=== PATIENT | female | born 1940 | race Caucasian/White ===

== ENCOUNTER → 2016-05-10 | Outpatient (CLI) | payer MEDICARE | END | disposition home or self-care (01) | LOC: BFHH 16:39 | DX: E11.40 Type 2 diabetes mellitus with diabetic neuropathy, unspecified (principal); I10 Essential (primary) hypertension; I50.9 Heart failure, unspecified; D64.9 Anemia, unspecified ==

== ENCOUNTER → 2016-08-09 | Outpatient (CLI) | payer MEDICARE | LOC: BFHH 11:10 | DX: E11.40 Type 2 diabetes mellitus with diabetic neuropathy, unspecified (principal); I50.9 Heart failure, unspecified; Z79.4 Long term (current) use of insulin ==

== ENCOUNTER → 2016-11-08 | Outpatient (CLI) | payer MEDICARE | END | disposition home or self-care (01) | LOC: BFHH 10:28 | PROVIDERS: ATTEND Family Medicine | DX: E11.40 Type 2 diabetes mellitus with diabetic neuropathy, unspecified (principal); I50.9 Heart failure, unspecified; D64.9 Anemia, unspecified ==

== ENCOUNTER → 2016-11-12 | Outpatient (CLI) | payer MEDICARE, MEDICAID | END | disposition home or self-care (01) | LOC: YCFC.O 12:22 | PROVIDERS: ATTEND Nurse Practitioner Family | DX: I50.9 Heart failure, unspecified (principal); J44.9 Chronic obstructive pulmonary disease, unspecified ==

== ENCOUNTER 2016-11-13 12:52 | Inpatient (IN) | payer MEDICARE, MEDICAID ==
--- NOTE | 2016-11-13 14:42 | CT ---
EXAM DESCRIPTION: Chest w/o Contrast CLINICAL HISTORY: PLEURAL EFFUSION COMPARISON: Chest radiographs on 11/12/2016. TECHNIQUE: Spiral-axial scans at 5.0 mm intervals through the lungs and thorax without IV contrast. 2.5 mm lung algorithm axial reconstructions. Coronal and sagittal 2.0 Mm reconstructions. Total Exam DLP: 689.97mGy-cm. This exam was performed according to our departmental dose-optimization program which includes automated exposure control, adjustment of the mA and/or kV according to patient size and/or use of iterative reconstruction technique; to reduce radiation dose to as low as reasonably achievable (ALARA). FINDINGS: Large left pleural effusion with atelectasis involving most of the left lung. Residual air-filled lung parenchyma in the anterior left upper lobe. Increased volume in the left hemithorax with displacement of the aortic arch, trachea, and esophagus, heart and mediastinum to the right of midline. No pleural effusion on the right. Difficult to distinguish enlarged hilar nodes from pulmonary vascularity without IV contrast. Two slightly irregular 1 cm nodules in the anterior aspect of the right upper lobe (series 4, image 32). Minimal atelectasis in the base. No pneumothorax. Atherosclerotic calcification in the aortic arch. Heterogeneous density of the thyroid gland. Atherosclerotic calcification of the aorta. Coronary artery calcifications. Enlarged azygos nodes with short axis diameter greater than 10 mm. Enlarged AP window nodes with short axis diameter greater than 10 mm. Enlarged lobulated mass with partially spiculated margins in the upper outer quadrant of the left breast, measuring 6.5 x 5.6 cm. Calcifications around the margins of the mass. Skin thickening of the anterior right breast. Enlarged lymph nodes with somewhat irregular borders and fatty stranding in the left axilla measuring 2.4 and 3.7 cm. No subdiaphragmatic fluid or free intraperitoneal air. Included spleen normal density. Normal size and density of the left adrenal gland. Right adrenal gland is slightly enlarged. Large rim calcified gallstones 2 cm in the gallbladder. Atherosclerotic changes of the abdominal aorta and the SMA and celiac axis. Multiple levels of thoracic spondylosis. No bone destruction. Compression fracture of unknown age at L2 mostly central with minimal retropulsion. IMPRESSION: 1. Large left pleural effusion with atelectasis in the left lung and mass effect on the mediastinum and heart trachea and esophagus to the right. Minimal aerated upper lobe on the left. Most of the lung is atelectatic. Because of the findings in the lymph nodes, right lung, and right breast, diagnostic thoracentesis should be considered. 2. Two abnormal spiculated nodules in the right upper lobe could represent primary or metastatic disease or inflammatory lesions. 3. Large abnormal appearing mass in the right breast with spiculated and ill-defined margins and skin thickening and edema in the anterior breast. Image guided fine-needle core biopsy is recommended. 4. Reactive appearing nodes in the left axilla. Consider image guided fine needle core biopsy. 5. 2 Centimeter stone in the gallbladder. Slight enlargement of the right adrenal gland. CRITICAL COMMUNICATION: The critical value was discussed directly by phone with Dr. Miguel Velazquez at approximately 1400 hours, on November 13, 2016. Electronically signed by: Aren Leon MD 11/13/2016 2:41 PM CDT
--- NOTE | 2016-11-13 17:58 | HP ---
SUPERVISING PHYSICIAN: Román Knight MD CHIEF COMPLAINT: Severe shortness of breath, lower extremity edema, facial edema. HISTORY OF PRESENT ILLNESS: Ms. Olea is a 76-year-old, female patient that is followed at [facility]. She ivy have a history of diabetes and chronic obstructive pulmonary disease. She had been having some lower extremity and swelling within the last week. She noted she has had over an 11 pound weight gain over the last several months. In the last couple of days, she has started getting severely short of breath. She presented to the clinic today and it was noted she had some facial and periorbital edema. She was sent for a chest x-ray and laboratory studies with concerns for possible congestive heart failure exacerbation although the patient does not have an official diagnosis of congestive heart failure. Her chest x-ray initially showed near white-out of the left lung mancia with a large pleural effusion noted. Yeni Rock, nurse practitioner, in the clinic requested the patient be initially admitted directly to the hospital for further evaluation and treatment. Request was to have the patient followed with a CT scan prior to admission to further delineate the left lung. She had a CT scan without contrast and of note per radiologic interpretation was a large left pleural effusion with a mass effect on the mediastinum, heart, trachea, and esophagus to the right. There was also note of two abnormal spiculated nodules in the right upper lobe as well as a large abnormal appearing mass within the right breast with spiculated ill-defined margins, skin thickening and edema in the anterior breast. There was also note of some reactive appearing nodes within the left axilla as well as a 2 cm stone was noted in the gallbladder. Given the extensive nature of pleural effusion and the patient's symptomatology, the patient's case was discussed with Dr. Monsivais who agreed the patient could be admitted to the Medical/Surgical Floor for a diagnostic thoracentesis as well as need for a needle biopsy of the breast mass. The patient noted that she has never had a mammogram and reports that the breast mass has been present for well over six years. She also notes there had been a change in her medications regarding gabapentin which was felt to possibly be related to the facial swelling as it had been recently increased in dosage due to the peripheral neuropathy secondary to diabetes complications. The patient was directly to the Medical/Surgical Floor in stable condition. PAST MEDICAL HISTORY: 1. Type 2 diabetes mellitus. 2. Diabetic neuropathy. 3. Hypercholesterolemia. 4. Obstructive sleep apnea utilizing CPAP. 5. Hypertension. 6. Congestive heart failure without a recent echocardiogram for review. 7. Eczema. PAST SURGICAL HISTORY: 1. Hysterectomy in 1982. 2. EGD with esophageal fundoplasty in 2011. 3. Colonoscopy in 2011. MEDICATIONS: 1. Vitamin B12 1 daily. 2. Potassium chloride 10 mEq daily. 3. Protonix 40 mg daily. 4. Lovastatin 20 mg daily. 5. Lisinopril 20 mg daily. 6. Glipizide 10 mg daily. 7. Gabapentin 600 mg twice daily. 8. Lasix 20 mg daily. 9. Iron sulfate 325 mg 3 times a day. 10. Calcium supplement 1 tablet daily. ALLERGIES: NO KNOWN DRUG ALLERGIES. FAMILY HISTORY: Significant for diabetes, heart disease, cancers as noted with pancreatic cancer within her maternal grandmother. SOCIAL HISTORY: The patient lives in [place]. She is . She is retired from working in [employer] in [place], [place]. She does have an extensive smoking history, approximately 1 to 1-1/2 packs a day for a little over 40 years , having quit in 2004. She denies any alcohol or illicit drug use. REVIEW OF SYSTEMS: CONSTITUTIONAL: She has had an 11 pound weight gain within the last 2 to 3 months, but denies any fevers, chills. HEENT: Denies changes in hearing, nasal congestion, headaches. As noted in history of present illness, she does have facial edema and periorbital edema which has been present for a couple of days. RESPIRATORY: She does complain of severe dyspnea with rapid desaturation secondary to the large underlying pleural effusion. She does have a cough, but it is nonproductive. CARDIOVASCULAR: Denies chest pains, syncopal episodes or palpitations. GASTROINTESTINAL: Denies abdominal pain, diarrhea, constipation, nausea or vomiting. GENITOURINARY: Denies dysuria, hematuria, increased frequency. NEUROLOGIC: Denies dizziness, headaches, or other neurologic symptoms. PHYSICAL EXAMINATION: VITAL SIGNS: On admission, temperature 99. Pulse 98. Blood pressure 130/72. Respirations 22 to 24 with obvious shortness of breath and labored. O2 saturation between 90% and 92% on nasal cannula at 4.5 liters. Admission weight 102.0 kg. HEENT: Tympanic membranes partially obscured by cerumen. Facial features were symmetrical, but she does have obvious facial edema and periorbital edema, more on the right than the left. NECK: Supple, nontender with full range of motion. There is some mild jugular venous distention noted. CHEST: Lung sounds on left side of chest were essentially absent except for just very faint noted to the upper apices. Right is fairly clear, just some faint rhonchi heart posteriorly both on right and left. CARDIOVASCULAR: Heart tones were very distant, but no obvious murmurs, gallops , or rubs noted. ABDOMEN: Obese, but soft, nontender. Positive bowel sounds. EXTREMITIES: 1+ edema up to just below the patellar region bilaterally. NEUROLOGIC: The patient is alert and oriented times three. Cranial nerves II- XII are grossly intact. LABORATORY: CBC at the clinic prior to admission showed white count 4.5, hemoglobin 12.5, hematocrit 39.1, platelet count 197,000. Differential within normal limits without a left shift. Chemistries showed elevated carbon dioxide of 36, but potassium and sodium were within normal limits. BUN slightly elevated at 26, but creatinine was elevated at 2.0. BNP normal at 30. Admission glucose was 101. Serum osmolality 286, calcium 9.3. Urinalysis showed just a trace of intact blood, otherwise within normal limits. Coagulation studies and liver functions were pending at time of admission. RADIOLOGY: As noted, chest x-ray in the clinic today showed a large pleural effusion pending radiology interpretation. This was followed up with a CT of the chest without contrast and per radiologic interpretation, as noted above, there was a large left pleural effusion with some slightly irregular nodules within the anterior aspect of the right upper lobe. There was no pneumothorax noted. There was 2 abnormal spiculated nodules in the right upper lobe as well as a large abnormal appearing mass within the right breast, spiculated with ill- defined margins, skin thickening and edema anterior in the breast with reactive appearing nodes within the left axilla and 2 cm stone noted within the gallbladder, slight enlargement of the right adrenal gland. Please refer to that report for full details. ASSESSMENT: 1. Large left sided pleural effusion resulting in severe dyspnea. Etiology concerning for a metastatic process with a mass noted on CT scan within the right breast as well as enlarged lymph nodes in the left axilla. 2. Breast mass, concerning for metastatic process with the patient having no history of breast cancer or ever having a mammogram. 3. Type 2 diabetes mellitus. 4. Diabetic neuropathy. 5. Obstructive sleep apnea utilizing CPAP. 6. History of congestive heart failure, unknown etiology, without any echocardiogram for review. 7. Gastroesophageal reflux disease. 8. Facial edema with periorbital edema, uncertain etiology, cannot completely rule out underlying infectious process versus reactive process secondary to allergies or medication side effect. 9. Morbid obesity. PLAN: The patient will be admitted for anticipation of diagnostic/therapeutic thoracentesis in the morning to be performed by Dr. Monsivais. Dr. Monsivais has been consulted and also will talk to the patient about possibly doing a needle biopsy of both the lymph nodes and the mass within the left breast. Given the appearance of the facial and periorbital edema, I will start her on Rocephin for prophylactic treatment for possible underlying cellulitis process. We will plan to repeat laboratory studies in the morning including CBC, CMP, coagulation studies. She will be on breathing treatments tonight with albuterol DuoNeb treatments as needed as well as BiPAP as the patient tolerates. I will place a Eckert catheter to closely monitor her output and volume status and anticipate giving initially a dose of 80 mg IV Lasix in efforts to decrease the extremity edema as well as relieve some of the pleural effusion and facial edema. We will anticipate thoracentesis in the morning. I will coordinate with nursing staff to ensure that sonography is aware of working with Dr. Monsivais in regards to completing the thoracentesis. We will resume her home medications as appropriate. We will start her on DVT prophylaxis and hold off on the Lovenox until after Dr. Monsivais has had time to consult and complete needed procedures. We will anticipate length of stay to be 2 to 3 days. Until discharge, we will continue to monitor the patient closely and treat appropriately. Once clinically stable and discharged, the patient will need to followup with [facility] as well as any other needed clinical followup. #[id number] [facility]
[2016-11-13] MEDS ORDERED: DEXTROSE 50% 25 GM/50 ML SYG IV PRN (18:14)
[2016-11-13] MEDS ORDERED: GLUCAGON INJ 1 MG VIAL SUBCU PRN (18:14)
[2016-11-13] MEDS ORDERED: SODIUM CHLORIDE 0.45% 1000ML 1,000 ML IVS PRN (18:21)
[2016-11-13] MEDS ORDERED: IV SET AND CAP CHANGE INJ INJ SCH (18:30)
[2016-11-13] MEDS ORDERED: FUROSEMIDE INJ 100 MG/10 ML VIAL IV ONE (20:00)
[2016-11-13] MEDS ORDERED: cefTRIAXone SODIUM 1 GM VIAL ONE (20:12)
[2016-11-13] MEDS ORDERED: SODIUM CHL 0.9% 50ML MIN-BAG+ 50 ML IVPB ONE (20:12)
[2016-11-13] MEDS: SODIUM CHLORIDE 0.9% (FLUSH) 10 ML SYG IV PRN ×2 (20:27→20:32)
[2016-11-13] MEDS: cefTRIAXone SODIUM 1 GM in SODIUM CHL 0.9% 50ML MIN-BAG+ 50 ML IVPB SCH (20:28)
[2016-11-13] MEDS: INSULIN LISPRO 100 UNITS/ML PEN SUBCU SCH (20:56)
[2016-11-13] MEDS ORDERED: NON-FORMULARY MEDICATION 1 EA MIS (Gabapentin [Gabapentin] 600 MG) PO SCH (21:00)
[2016-11-13] MEDS ORDERED: SODIUM CHLORIDE 0.9% (FLUSH) 10 ML SYG IV SCH (21:00)
[2016-11-13] MEDS ORDERED: NON-FORMULARY MEDICATION 1 EA MIS (Ferrous Sulfate [Ferrous Sulfate] 325 MG) PO SCH (21:00)
[2016-11-13] MEDS ORDERED: FERROUS SULFATE 325 MG TAB ONE (21:10)
[2016-11-13] MEDS ORDERED: GABAPENTIN 300 MG CAP ONE (21:10)
[2016-11-13] MEDS ORDERED: IPRATROPIUM/ALBUTEROL 3 ML VIAL NEB PRN (21:44)
--- NOTE | 2016-11-13 22:46 | PCM.CORE ---
Physician DVT/VTE - Nurse DVT Assessment & Total Each Risk Factor Represents 3 Points: Medical PT with Hx of [place], CHF, Severe infection/sepsis Each Risk Factor Represents 2 Points: Age 60-74, Malignancy (present/past) Each Risk Factor Represents 1 Point: Hx of smoking past year Each Risk Factor is 1 Point: Obesity (BMI >25), Serious Lung disease (pnemonia < 1month, COPD, emphysema,etc) DVT Assessment Score: 10 - 5 or more Very High Risk Treatments: Early Ambulation *, Sequential Compression Device Pharmacological: Enoxaparin 40mg SQ Daily
[2016-11-14] MEDS: ACETAMINOPHEN 325 MG TAB PO PRN ×3 (00:41→17:45)
--- NOTE | 2016-11-14 06:58 | RAD ---
EXAM: Two view chest. INDICATION: Left pleural effusion. COMPARISON: Chest x-ray: 11/12/2016. FINDINGS: There is a large left pleural effusion with little aeration of the left lung. The left heart border is obscured. There is no pneumothorax. The bones are unchanged. IMPRESSION: Large left pleural effusion Electronically signed by: Cuauhtemoc Foster MD 11/14/2016 6:57 AM CDT Workstation: [id number]
[2016-11-14] MEDS: INSULIN LISPRO 100 UNITS/ML PEN SUBCU SCH ×4 (07:40→21:42)
[2016-11-14] MEDS: IPRATROPIUM/ALBUTEROL 3 ML VIAL NEB SCH ×4 (08:08→20:15)
[2016-11-14] MEDS ORDERED: NON-FORMULARY MEDICATION 1 EA MIS (Lovastatin [Lovastatin] 20 MG) PO SCH (09:00)
[2016-11-14] MEDS ORDERED: glipiZIDE 5 MG TAB PO SCH (09:00)
[2016-11-14] MEDS: FERROUS SULFATE 325 MG TAB PO SCH ×3 (09:32→17:19)
[2016-11-14] MEDS: PANTOPRAZOLE SODIUM TAB 40 MG PO SCH (09:33)
[2016-11-14] MEDS: GABAPENTIN 300 MG CAP PO SCH ×2 (09:33→21:08)
[2016-11-14] MEDS: LISINOPRIL 10 MG TAB PO SCH (09:33)
[2016-11-14] MEDS: SODIUM CHLORIDE 0.9% (FLUSH) 10 ML SYG IV PRN (09:34)
[2016-11-14] MEDS ORDERED: LIDOCAINE 1% 10 ML VIAL INJ ONE (09:58)
--- NOTE | 2016-11-14 10:44 | RAD ---
EXAM DESCRIPTION: Chest,1 View CLINICAL HISTORY: 76 years,Female,post thorocentesis-2000ml COMPARISON: November 14, 2016 at 0638 hours FINDINGS: Mild haziness in left lung base. Large effusion prior studies mostly gone. There is some left perihilar prominence of 2.5 cm seen. And lower lung mancia demonstrate engorgement point vascularity. Moderate cardiac megaly. Bony elements are unremarkable for age. No pneumothorax IMPRESSION: Near complete resolution of the left pleural effusion. No pneumothorax. Prominence of left perihilar region. This could be vascularity but cannot exclude mass. Recommend follow-up CT scan of the chest with IV contrast. The prior CT from yesterday without contrast cannot evaluate the left hilar region well due to the atelectatic lung and large pleural effusion. But there are some nodules in the right lung field worrisome for carcinoma. Mild evidence of congestive heart failure. Electronically signed by: Colt Butt MD 11/14/2016 10:43 AM CDT
--- NOTE | 2016-11-14 11:26 | OP ---
DATE OF PROCEDURE: 11/14/16 PREOPERATIVE DIAGNOSIS: 1. Left pleural effusion. 2. Right breast mass. POSTOPERATIVE DIAGNOSIS: 1. Left pleural effusion. 2. Right breast mass. PROCEDURE: 1. Left thoracentesis. SURGEON: Joe Monsivais MD. CARAMEL MAKER: None. ANESTHESIA: Local infiltration of 1% lidocaine. INDICATION: The patient is a 76-year-old female who presented with shortness of breath and was found to have a left pleural effusion. She has a right breast mass that has been present for at least 6 years according to the patient. Using BiPAP, her pulse oximetries at best were in the low 90s. I have been asked to do both diagnostic and therapeutic thoracentesis. PROCEDURE: After ultrasound was used to identify the pool and the depth of the pool, local infiltration of anesthesia was obtained with 1% lidocaine. A stab wound was made with an 11 blade and then after a 22 gauge needle had been introduced and clear fluid obtained, the thoracentesis needle and catheter were introduced in the usual manner over the rib, advanced as fluid was removed and then the catheter was advanced and the needle removed. It was then connected first to a three-way stopcock and approximately 240 cc of fluid were obtained. It was then switched to a suction bottle and the remaining fluid was removed with approximately 2 liters of fluid removed. It was sent for cytology, cell count and culture. The patient tolerated the procedure well. Post procedure, a portable chest x-ray revealed resolution of the effusion with no obvious pneumothorax. #[id number] [facility]
--- NOTE | 2016-11-14 12:06 | US ---
EXAM DESCRIPTION: Thoracentesis ultrasound CLINICAL HISTORY: LEFT pleural effusion. Right breast mass. Left axillary adenopathy. COMPARISON: Chest radiograph today. CT scan of the chest without contrast 11/13/2016. TECHNIQUE: The procedure was performed by Dr. Monsivais. Skin overlying the left posterior thorax area was marked for thoracentesis by the nurse general duty. FINDINGS: Single image shows a moderate-sized fluid collection in the base of the left hemithorax above the left hemidiaphragm. Measures approximately 8.3 x 4.5 cm. IMPRESSION: Successful, ultrasound-guided thoracentesis of the left hemithorax. Please refer to procedure note for further details. Electronically signed by: Aren Leon MD 11/14/2016 12:05 PM CDT
--- NOTE | 2016-11-14 14:26 | CONS ---
DATE OF CONSULTATION: 11/14/16 REFERRING PHYSICIAN: [facility] service, Jose A Rubalcava MD. HISTORY OF PRESENT ILLNESS: The patient is a 76-year-old female who was admitted with shortness of breath and an abnormal chest x-ray which revealed a large left pleural effusion. She has ongoing chronic obstructive pulmonary disease and there was a question of congestive heart failure due to some swelling in her feet. It is also significant that the patient states she has known she has had a right breast mass for at least six years. She is currently seen on BiPAP and discussion is done in the presence of her daughter. PAST MEDICAL HISTORY: 1. Type 2 diabetes. 2. Diabetic neuropathy. 3. Hypercholesterolemia. 4. Obstructive sleep apnea. 5. Chronic obstructive pulmonary disease. 6. History of congestive heart failure. 7. Hypertension. 8. Eczema. PAST SURGICAL HISTORY: 1. Hysterectomy. 2. Esophageal fundoplasty. 3. Colonoscopy. MEDICATIONS AT TIME OF ADMISSION: 1. Potassium supplementation. 2. Protonix. 3. Lovastatin. 4. Lisinopril. 5. Glipizide. 6. Gabapentin. 7. Lasix. 8. Iron. 9. Calcium supplementation. ALLERGIES: NO KNOWN DRUG ALLERGIES. FAMILY HISTORY: Positive for diabetes, heart disease and pancreatic cancer. SOCIAL HISTORY: The patient is . She is retired. She smoked for 40 to 50 pack years of tobacco use, quit 12 years ago. No history of alcohol abuse. REVIEW OF SYSTEMS: There has been a weight gain over the last several months. She denies productive cough or chest pain. She does become quite short of breath with any exercise. She denies any change in her bowel habits or appetite. She denies blood per rectum or melanotic stools. There are no recent headaches. PHYSICAL EXAMINATION: GENERAL: The patient is awake, alert, cooperative. VITAL SIGNS: The patient is normotensive. Her respiratory rate is over 24 and is labored. Pulse oximetry 90 to 92% on BiPAP. HEENT: Unremarkable other than some edema and she is wearing the BiPAP device. NECK: Without adenopathy. CHEST: Decreased breath sounds on the left posteriorly. The right is clear. HEART: Heart sounds are distant. No murmurs. ABDOMEN: Soft, nontender. BREAST: The left breast reveals peau d'orange skin with no distinct mass, no nipple discharge. The right breast reveals a large mass in the upper outer quadrant that is at least 6 cm in greatest diameter. It is nontender. There are no overlying skin changes other than it does appear to be stuck to the skin , so when it is moved, the skin dimples. LABORATORY: Normal white count and hemoglobin. Creatinine was elevated at 2. CT scan of the abdomen revealed the pleural effusion, left axillary lymphadenopathy, uncertain hilar lesions and the large right breast mass, also a 2 cm stone in the gallbladder. RECOMMENDATION: I discussed therapeutic and diagnostic left thoracentesis, but explained that even if we find malignant cells, we will not be able to identify the sources. I have recommended also a needle core biopsy that will be sonographically guided of the left breast mass. Both she and the daughter understand, their questions were answered, and they agreed to both procedures. These will be done today. #[id number] [facility]
--- NOTE | 2016-11-14 15:17 | PN ---
DATE: 11/14/16 SUBJECTIVE: The patient is feeling significantly better after therapeutic and diagnostic thoracentesis performed by Dr. Monsivais earlier this morning. She is able to speak in complete sentences. Her appetite is improved as well. OBJECTIVE: VITAL SIGNS: Afebrile. Pulse 103. Blood pressure 107/60. On BiPAP at 4 liters to receive a 93% saturation, where earlier this morning on BiPAP, at 40%, she was only 89% pulse oximetry. Respiratory rate has dropped from 20 to 16. LUNGS: Improved breath sounds, especially on the left compared to before the removal of approximately 2 liters of pleural fluid. The fluid is sent to the lab for culture, cytology and cell count with the results pending. RADIOLOGY: Repeat chest x-ray shows a significant improvement in the previously noted pleural effusion with some abnormal findings within the perihilar region which will require further investigation as reports are obtained from Pathology. Successful breast needle biopsy was also performed by Dr. Monsivais and results pending. ASSESSMENT: 1. Large left sided pleural effusion with significant symptoms and severe dyspnea and midline shift of mediastinal structures. 2. Post thoracentesis performed by Dr. Monsivais this morning showing some symptomatic improvement and awaiting laboratory and pathology reports on the pleural effusion. 3. Right sided breast mass, approximately the size of a lemon with needle biopsy being performed by Dr. Monsivais. 4. Type 2 diabetes mellitus. 5. Peripheral diabetic neuropathy. 6. History of chronic obstructive sleep apnea, requiring CPAP administration. 7. History of congestive heart failure of undetermined etiology with no recent echocardiographic studies for review. 8. History of gastroesophageal reflux disease. 9. 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 10. History of obesity. PLAN: The patient will continue to be observed closely and await further pathology input in decisions as they relate to the patient . Reevaluation in the morning. #[id number] [facility]
--- NOTE | 2016-11-14 15:33 | OP ---
DATE OF PROCEDURE: 11/14/16 PREOPERATIVE DIAGNOSIS: 1. Right breast mass. 2. Left pleural effusion status post thoracentesis. POSTOPERATIVE DIAGNOSIS: 1. Right breast mass. 2. Left pleural effusion status post thoracentesis. PROCEDURE: 1. Sonographically guided needle core biopsy, right breast mass. SURGEON: Joe Monsivais MD. TRANSITIONAL LIVING SPECIALIST: None. ANESTHESIA: Local infiltration of 1% lidocaine. INDICATION: The patient is a 76-year-old female who presented with shortness of breath and was noted to have large left pleural effusion. On physical examination, she was noted to have a large right breast mass. On CT scan, the mass was somewhat spiculated. She was also noted to have peau d'orange skin on the left breast and left axillary lymphadenopathy. She underwent a thoracentesis earlier this morning that was kike colored and cytology, cell count and culture is pending on that. FINDINGS: Three excellent cores were obtained and sent for pathological evaluation. PROCEDURE: After the patient was placed in the supine position with the right shoulder elevated with a pillow, the right breast was examined using the ultrasound probe and the lesion was identified. The breast medial to the mass was prepped with Betadine and draped with sterile towels. Local infiltration of anesthesia was obtained with 1% lidocaine. A stab wound was made with a #15 blade and then three core biopsies were obtained with the needle noted by ultrasound to be within the mass. The cores were placed in formalin and sent for pathologic evaluation. Hemostasis was obtained with pressure and then a single suture of 4-0 Nylon. Sterile dressing was applied. Ice pack was applied. The patient tolerated the procedure well. Estimated blood loss was 5 to 10 cc. All sponge, needle and instrument counts were correct. #[id number] [facility]
--- NOTE | 2016-11-14 16:19 | US ---
EXAM DESCRIPTION: Biopsy/Needle Guidance CLINICAL HISTORY: 76 years Female ABNORMAL CAT SCAN COMPARISON: 11/13/2016 CT. TECHNIQUE: Limited real time vieyra scale sonographic imaging acquired to the right breast in the region of the palpable mass for localization purposes. FINDINGS: The large solid mass seen on the CT examination of the right breast as noted on ultrasound. Needle localization of the mass was performed by an on-site physician. Images demonstrate the needle in the central aspect of the mass. IMPRESSION: Ultrasound guidance for biopsy as described Electronically signed by: Bing Last 11/14/2016 4:17 PM CDT
[2016-11-14] MEDS ORDERED: cefTRIAXone SODIUM 1 GM VIAL ONE (19:55)
[2016-11-14] MEDS ORDERED: SODIUM CHL 0.9% 50ML MIN-BAG+ 50 ML IVPB ONE (19:55)
[2016-11-14] MEDS: cefTRIAXone SODIUM 1 GM in SODIUM CHL 0.9% 50ML MIN-BAG+ 50 ML IVPB SCH (20:13)
[2016-11-14] MEDS ORDERED: ENOXAPARIN SODIUM 40 MG/0.4 ML SYG SUBCU ONE (20:34)
[2016-11-14] MEDS ORDERED: SIMVASTATIN 10 MG TAB PO SCH (21:00)
[2016-11-14] MEDS: glipiZIDE 5 MG TAB PO SCH (21:08)
[2016-11-14] MEDS ORDERED: NYSTATIN POWDER 15GM BTTL TOP ONE (21:56)
[2016-11-14] MEDS: NYSTATIN POWDER 15GM BTTL TOP SCH (22:07)
[2016-11-14] MEDS ORDERED: ENOXAPARIN SODIUM 40 MG/0.4 ML SYG SUBCU SCH (23:00)
[2016-11-15] MEDS: ACETAMINOPHEN 325 MG TAB PO PRN (02:25)
[2016-11-15] MEDS: PANTOPRAZOLE SODIUM TAB 40 MG PO SCH (05:56)
--- NOTE | 2016-11-15 07:09 | RAD ---
EXAM: Single view chest. INDICATION: Thoracentesis. COMPARISON: Chest x-ray: 11/14/2016. FINDINGS: There is a worsening layering left pleural effusion. There is pulmonary vascular congestion with interstitial edema. The heart is enlarged. There is no pneumothorax. The bones are unchanged. IMPRESSION: Worsening layering left pleural effusion. Pulmonary vascular congestion with interstitial edema Electronically signed by: Cuauhtemoc Foster MD 11/15/2016 7:07 AM CDT Workstation: [id number]
[2016-11-15] MEDS: INSULIN LISPRO 100 UNITS/ML PEN SUBCU SCH ×3 (07:32→16:58)
[2016-11-15] MEDS: glipiZIDE 5 MG TAB PO SCH ×2 (08:25→17:30)
[2016-11-15] MEDS: FERROUS SULFATE 325 MG TAB PO SCH ×3 (08:25→17:29)
[2016-11-15] MEDS: NYSTATIN POWDER 15GM BTTL TOP SCH ×3 (08:25→17:30)
[2016-11-15] MEDS: IPRATROPIUM/ALBUTEROL 3 ML VIAL NEB SCH ×3 (08:32→15:55)
[2016-11-15] MEDS: GABAPENTIN 300 MG CAP PO SCH (09:13)
[2016-11-15] MEDS: LISINOPRIL 10 MG TAB PO SCH (09:14)
[2016-11-15 18:12] VITALS: O2SAT 92
[2016-11-15 18:37] VITALS: BP 127/48; TEMP 98.3
--- NOTE | 2016-11-15 19:40 | DS ---
DISCHARGE DIAGNOSIS: 1. Large symptomatic left sided pleural effusion with severe dyspnea and midline shift of the mediastinal structures requiring thoracentesis. 2. Post thoracentesis performed by Dr. Monsivais on the morning prior to discharge with symptomatic improvement and over 2 liters of fluid sent to the laboratory and pathology for report. 3. Right sided breast mass approximately the size of a large lemon with needle biopsy being performed by Dr. Monsivais with clinical appearance that of significant neoplasia with skin involvement. 4. Diabetes mellitus type 2. 5. Peripheral diabetic neuropathy. 6. History of chronic obstructive sleep apnea on CPAP administration. 7. History of congestive heart failure of undetermined etiology with no recent echocardiographic studies for review. 8. History of gastroesophageal reflux disease. 9. Recent facial edema with periorbital edema possibly related to symptomatic superior vena caval syndrome hopefully improving as the pleural effusion is removed. 10. History of obesity. 11. History of chronic tobacco abuse. HISTORY OF PRESENT ILLNESS: This 76 year-old white female is admitted to the hospital because of severe and worsening shortness of breath. She has had a recent significant weight gain. She has had significant edema, especially of the lower extremities getting worse within the last week. Some periorbital and facial edema also present. At the [facility], she was seen by the nurse practitioner who did a chest x-ray revealing marked left pleural effusion with almost doc out of the left lung. CT scan showed mass effect of the mediastinum with mediastinal structures deviating towards the right from the left. There are some abnormal spiculated nodules also present which were concerning for the presence of neoplasia. Gallstone also present. The patient was admitted to the hospital directly from the clinic for general surgery consultation and procedures with thoracentesis and biopsy of the right breast mass which has been present for a number of years. LABORATORY: White count is 5,600, hemoglobin 11.5 on discharge. INR of 1.06. Chemistry shows potassium 3.9, BUN 26, creatinine 1.93, glucose fasting is 76, bilirubin 8.4. Beta natriuretic peptide 30, albumin 3.6. Liver enzymes otherwise normal. Urinalysis showed a trace of blood, 1+ bacteriuria and pleural fluid showed no growth after 24 hours. Chest x-ray reveals almost complete opacification of the left chest with mediastinal abnormalities noted. The patient had a CT of the chest which showed marked left pleural effusion with deviation of the mediastinal structures and significant nodularity suggesting neoplastic disease processes. Also the right lateral breast has a very large mass suggesting a neoplasia. Also a 2 cm stone in the gallbladder evident. After therapeutic and diagnostic thoracentesis, chest x-ray showed almost complete clearing of the pleural effusion until the next day when there was a fairly significant reaccumulation of the effusion on the left. Some pulmonary vascular congestion with interstitial edema and some abnormal nodes could also be appreciated. HOSPITAL COURSE: The patient was extremely dyspneic having difficulty even talking when she first came in. She was feeling much improved after the removal of 2 liters of pleural effusion and was ready to continue with further workup in the outpatient department. PLAN: The patient will be discharged home with [facility]. Continue with her regular diet. Increase activity as tolerated. Avoid over exertion. See Dr. Monsivais next 11/20/16, and to call his office for scheduled appointment. She was given an outpatient request form for a chest x- ray two view PA and lateral to be performed approximately an hour before her clinic visit so that she can go have the x-ray performed and then go to Dr. Monsivais 's office for clinical examination. See home medications list. Stay active. Breathe deeply. If swelling is noted, to decrease fluid intake. Close followup with Dr. Yeni Rock if medical questions arise. Return if not improving. #[id number] [facility]
[2016-11-15] MEDS ORDERED: ENOXAPARIN SODIUM 30 MG/0.3 ML SYG SUBCU SCH (21:00)
[2016-11-15] MEDS ORDERED: NYSTATIN POWDER 15GM BTTL TOP SCH (21:53)
== END 2016-11-15 19:00 | disposition home health service (06) | DRG 292 ==
LOC: CT 12:52 → MS 17:30 → OBSVTOIN 17:30
PROVIDERS: ADMIT Nurse Practitioner Family; ATTEND Emergency Medicine
PROC: 0W9B3ZX Drainage of Left Pleural Cavity, Percutaneous Approach, Diagnostic (ICD-10-PCS; principal; 2016-11-14)
PROC: 0HBT3ZX Excision of Right Breast, Percutaneous Approach, Diagnostic (ICD-10-PCS; 2016-11-14)
DX: I11.0 Hypertensive heart disease with heart failure (principal); J90 Pleural effusion, not elsewhere classified; Z68.41 Body mass index [BMI] 40.0-44.9, adult; I50.9 Heart failure, unspecified; E11.42 Type 2 diabetes mellitus with diabetic polyneuropathy; J44.9 Chronic obstructive pulmonary disease, unspecified; K21.9 Gastro-esophageal reflux disease without esophagitis; E78.00 Pure hypercholesterolemia, unspecified; G47.33 Obstructive sleep apnea (adult) (pediatric); L30.9 Dermatitis, unspecified; Z66 Do not resuscitate; E66.9 Obesity, unspecified; Z79.899 Other long term (current) drug therapy

== ENCOUNTER → 2016-11-20 | Outpatient (CLI) | payer MEDICARE, MEDICAID ==
--- NOTE | 2016-11-21 04:21 | RAD ---
Examination: XR CHEST 2 VIEWS dated 11/20/2016 12:00 AM CDT History: LT PUEURAL EFFUSION Comparison: 11/15/2016 Technique: Frontal and lateral views of the chest Findings: Increased size of left pleural effusion with near complete opacification of the left hemithorax. The right lung demonstrates prominent interstitial markings suggestive of pulmonary vascular congestion. The cardiac silhouette on the left is obscured. No acute osseous abnormality. Impression: Increased size of left pleural effusion with near complete opacification of the left hemithorax. Electronically signed by: Román Del Toro MD 11/21/2016 4:20 AM CDT
== END | disposition home or self-care (01) ==
LOC: RAD 14:20
PROVIDERS: ATTEND Surgery
DX: J91.8 Pleural effusion in other conditions classified elsewhere (principal)

== ENCOUNTER 2016-12-04 10:35 | Day surgery (SDC) | payer MEDICARE, MEDICAID ==
--- NOTE | 2016-12-04 13:00 | RAD ---
EXAM DESCRIPTION: Chest,1 View CLINICAL HISTORY: POST THORACENTESIS COMPARISON: November 20, 2016 IMPRESSION: Single AP portable upright view of the chest shows enlargement of the cardiomediastinal silhouette similar to previous exam without pulmonary vascular congestion. There is been interval significant reduction in size of the large left pleural effusion seen on previous exam status post thoracentesis. No evidence of pneumothorax. There is residual [id number]-vj-[id number] left pleural effusion versus atelectasis or infiltrate in the left lower lobe. Right lung is normally aerated and clear. Electronically signed by: Tien Louie MD 12/04/2016 12:59 PM CDT
[2016-12-04 13:04] VITALS: BP 138/85; TEMP 97.2; O2SAT 92
--- NOTE | 2016-12-04 13:10 | OP ---
DATE OF PROCEDURE: 12/04/16 PREOPERATIVE DIAGNOSIS: 1. 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 POSTOPERATIVE DIAGNOSIS: 1. 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 PROCEDURE: 1. Thoracentesis, therapeutic, left chest. SURGEON: Joe Monsivais MD. MANAGER INVENTORY: None. ANESTHESIA: Local infiltration of 1% lidocaine. INDICATION: The patient is a 76-year-old female with known carcinoma of the right breast with metastasis to the left pleural space who has become short of breath. Chest x-ray reveals a large pleural effusion with some transposition of the mediastinum to the right. She has no breath sounds on the left. She was brought to the Ambulatory Unit today for ultrasound to colleen her chest, followed by the therapeutic thoracentesis. FINDINGS: The fluid was easily obtained after the sonographic marking of the chest wall and 2300 mL of red-tinged, kike, clear fluid was obtained. None was sent for examination as this has previously been worked up. PROCEDURE: After the patient was ultrasounded sitting up, with her arms extends over a bedside table, the left chest was prepped with ChloraPrep and draped with a sterile towel. Infiltration of anesthesia was obtained at the area where it was marked and the 22-gauge needle was then walked over the rib and entered the pleural space where fluid was easily obtained. A stab wound was made and then the thoracentesis needle was introduced down onto the rib and then walked superiorly up over the rib and advanced. The needle was withdrawn. The catheter was advanced. Fluid was easily obtained. It was then connected to a three-way stopcock. 60 mL of fluid was obtained. It was then connected to the suction bottles and the remaining fluid was removed in the usual manner. The patient tolerated the procedure well. The catheter was removed. A stat portable chest x-ray was ordered. A band-aid was placed over the incision. There was no significant blood loss. #[id number] [facility]
--- NOTE | 2016-12-04 16:13 | US ---
EXAM DESCRIPTION: Chest: Ultrasound CLINICAL HISTORY: pre thoracentesis COMPARISON: None Available. TECHNIQUE: Transcutaneous scanning: Two-dimensional and Doppler modes. Skin of the posterior left thorax was marked by technologist overlying left pleural effusion in preparation for subsequent thoracentesis. FINDINGS: Patient was scanned through the left posterior thorax wall. Large anechoic pocket of fluid in the lateral space is identified. Posterior margin is 4 cm from the skin surface. IMPRESSION: Left pleural effusion identified prior to thoracentesis posterior approach. Electronically signed by: Aren Leon MD 12/04/2016 4:11 PM CDT
== END 2016-12-04 13:15 | disposition home or self-care (01) ==
LOC: AMB 10:35
PROVIDERS: ATTEND Surgery
DX: J91.0 Malignant pleural effusion (principal); C50.911 Malignant neoplasm of unspecified site of right female breast; J44.9 Chronic obstructive pulmonary disease, unspecified; E11.9 Type 2 diabetes mellitus without complications; I10 Essential (primary) hypertension; I25.10 Atherosclerotic heart disease of native coronary artery without angina pectoris; D64.9 Anemia, unspecified; Z87.891 Personal history of nicotine dependence

== ENCOUNTER → 2017-01-02 | Outpatient (CLI) | payer MEDICARE, MEDICAID ==
--- NOTE | 2017-01-03 17:14 | NM ---
EXAM DESCRIPTION: Bone Scan, Whole Body CLINICAL HISTORY: 76 years, Female, BREAST CA COMPARISON: No pertinent comparison radiographs FINDINGS: Patient injected with 27.7 mCi technetium 99m MDP. Standard delayed images obtained. No findings suspicious for bony metastatic disease. Moderate arthritic changes in the shoulders, more on the right. Arthritic changes in both knees. Normal renal excretion. Mild nonspecific nasal mucosa activity. IMPRESSION: No findings suspicious for bony metastatic disease. Mild arthritic changes noted. Electronically signed by: Raman Colin MD 01/03/2017 5:12 PM [facility]
== END | disposition home or self-care (01) ==
LOC: NM 08:59
PROVIDERS: ATTEND Internal Medicine Hematology & Oncology
DX: C50.412 Malignant neoplasm of upper-outer quadrant of left female breast (principal)

== ENCOUNTER → 2017-03-13 | Outpatient (CLI) | payer MEDICARE, MEDICAID | END | disposition home or self-care (01) | LOC: BFHH 12:53 | PROVIDERS: ATTEND General Practice | DX: C50.412 Malignant neoplasm of upper-outer quadrant of left female breast (principal) ==

== ENCOUNTER → 2017-05-03 | Outpatient (CLI) | payer MEDICARE, MEDICAID | LOC: BFHH 10:10 | PROVIDERS: ATTEND General Practice | DX: I50.9 Heart failure, unspecified (principal); E11.8 Type 2 diabetes mellitus with unspecified complications; C50.111 Malignant neoplasm of central portion of right female breast; E78.5 Hyperlipidemia, unspecified; C50.412 Malignant neoplasm of upper-outer quadrant of left female breast; D50.9 Iron deficiency anemia, unspecified ==

== ENCOUNTER → 2017-06-20 | Outpatient (CLI) | payer MEDICARE, MEDICAID ==
--- NOTE | 2017-06-20 17:09 | RAD ---
EXAM DESCRIPTION: Chest,2 Views CLINICAL HISTORY: ABN WEIGHT GAIN COMPARISON: Previous study December 04, 2016 TECHNIQUE: PA/lateral FINDINGS: Large left pleural effusion is seen occupying the lower two thirds of left hemithorax. Large cardiac silhouette may be cardiomegaly or pericardial effusion. There is central vascular congestion. Patchy partial volume loss in the right lung base is seen with volume loss in the left lower lobe above the effusion. Bones are unremarkable for age. Compared to previous study, left pleural effusion is new or larger. IMPRESSION: Large left pleural effusion. Large heart with moderate vascular congestion. Electronically signed by: Tigre Corrigan MD 06/20/2017 5:08 PM CDT
== END ==
LOC: LAB.O 16:29
PROVIDERS: ATTEND Nurse Practitioner Family
DX: J90 Pleural effusion, not elsewhere classified (principal); R63.5 Abnormal weight gain; E11.8 Type 2 diabetes mellitus with unspecified complications

== ENCOUNTER 2017-06-26 05:43 | Day surgery (SDC) | payer MEDICARE, MEDICAID ==
[2017-06-26 10:46] VITALS: BP 152/72; TEMP 98; O2SAT 95
--- NOTE | 2017-06-26 10:49 | RAD ---
EXAM DESCRIPTION: Chest,1 View CLINICAL HISTORY: postop . Post -thoracentesis. COMPARISON: Portable chest x-ray 06/20/2017. TECHNIQUE: AP portable taken at 1031 hours, upright. position. FINDINGS: Atelectasis in the left base and minimal effusion. Significant decrease in effusion since the prior study. No pneumothorax. Prominent interstitial markings bilaterally are stable. No new infiltrate or pleural effusion on the right. Mild cardiomegaly stable. Pulmonary vascularity not increased. IMPRESSION: Significant decrease in left pleural effusion after thoracentesis with no radiographic evidence of complications. Reinaldo, a nurse in outpatient surgery was notified of these findings by phone at approximately 1040 hours on 06/26/2017. Electronically signed by: Aren Leon MD 06/26/2017 10:48 AM CDT
--- NOTE | 2017-06-26 13:47 | OP ---
DATE OF PROCEDURE: 06/26/17 PREOPERATIVE DIAGNOSIS: 1. Left malignant pleural effusion secondary to carcinoma of the breast. POSTOPERATIVE DIAGNOSIS: 1. Left malignant pleural effusion secondary to carcinoma of the breast. PROCEDURE: 1. Sonographically guided thoracentesis. SURGEON: Jeo Monsivais MD. COMPLIANCE ANALYST: None. ANESTHESIA: Local infiltration of 1% lidocaine. INDICATION: The patient is a 76-year-old female who has known metastatic breast malignancy. She has twice previously undergone thoracentesis. She has developed some discomfort in the left chest and some dyspnea and at this time chest x-ray reveals a large left pleural effusion. She was brought to the Ambulatory Unit today for sonographically guided thoracentesis. FINDINGS: Approximately 1550 mL of kike, clear fluid was obtained. PROCEDURE: The patient was placed sitting on the bedside with her arms extended over the bedside table. The left chest was examined with the ultrasound device revealing a good, clear approximately 3 cm from the skin. At this point, this area was prepped with chlorhexidine and draped. Using the ultrasound device, after the skin was anesthetized, the 22-gauge needle was introduced over the ribs and into the chest cavity. Some fluid was obtained. The 22-gauge needle was withdrawn. A stab wound was made with a #11 blade and then the thoracentesis catheter with needle were introduced. When they were noted to be within the space and fluid is easily obtained, the catheter was advanced and the needle was removed. Using three-way stopcock, 60 mL of fluid were obtained. It was then switched to the suction bottles and remained fluid was removed without difficulty. There was some discomfort at the end of the procedure. No gas was obtained. No bleeding was identified. The catheter was then removed. Hemostasis was obtained with pressure and obliteration of the space. A band-aid was placed over the wound. The patient was placed back in the semi-erect position with pressure on the wound. A stat portable chest x- ray was ordered. The patient tolerated the procedure well. Stat post procedure chest x-ray was clear without pneumothorax. The specimen is not sent for pathological evaluation since we already know the diagnosis. The patient will followup on a p.r.n. basis. #[id number] [facility]
--- NOTE | 2017-06-26 16:16 | US ---
EXAM DESCRIPTION: Thoracentesis: ULTRASOUND. CLINICAL HISTORY: PREOP COMPARISON: 2 view chest x-ray 06/20/2017. TECHNIQUE: Transcutaneous scanning: Two-dimensional and Doppler modes. Technologist scanned the left thorax from the posterior wall with patient upright. The entry site for thoracentesis was indicated on the skin with indelible ink. Thoracentesis to be performed later at a remote location. Impression: Large left pleural effusion demonstrated by scanning through the posterior wall of the left hemithorax. Multiple scans were obtained. Largest pocket is 3.5 cm AP distance. Electronically signed by: Aren Leon MD 06/26/2017 4:15 PM CDT
== END 2017-06-26 10:50 | disposition home or self-care (01) ==
LOC: AMB 05:43 → EDSTATUS 09:00 → TXRM 10:50
PROVIDERS: ATTEND Surgery
DX: C50.911 Malignant neoplasm of unspecified site of right female breast (principal); J91.0 Malignant pleural effusion; J44.9 Chronic obstructive pulmonary disease, unspecified; E11.9 Type 2 diabetes mellitus without complications; D64.9 Anemia, unspecified; I10 Essential (primary) hypertension; I25.10 Atherosclerotic heart disease of native coronary artery without angina pectoris; Z99.81 Dependence on supplemental oxygen; Z87.891 Personal history of nicotine dependence

== ENCOUNTER 2017-06-28 12:23 | Emergency (ER) | payer MEDICARE, MEDICAID ==
[2017-06-28] MEDS ORDERED: PIPERACILLIN/TAZOBACTAM 3.375 GM in SODIUM CHLORIDE 0.9% 100ML 100 ML IVPB ONE (12:46)
[2017-06-28] MEDS ORDERED: AZTREONAM 1 GM in SODIUM CHL 0.9% 50ML MIN-BAG+ 50 ML IVPB ONE (12:46)
--- NOTE | 2017-06-28 12:50 | RAD ---
EXAM DESCRIPTION: Chest,1 View CLINICAL HISTORY: dyspnea COMPARISON: June 26, 2017 FINDINGS: The heart is enlarged but stable from the prior exam. There is no airspace consolidation in the left lung base with a possible small left-sided effusion, new or worse from the prior study. No right-sided airspace consolidation or right pleural effusion. The central bronchovascular markings are indistinct. There is no pneumothorax or acute fracture. IMPRESSION: CHF including left basilar edema with a small left-sided effusion. Pneumonia is a less likely consideration. Electronically signed by: Favio Brush MD 06/28/2017 12:48 PM CDT
[2017-06-28] MEDS ORDERED: AZTREONAM 1 GM VIAL ONE (12:51)
[2017-06-28] MEDS ORDERED: SODIUM CHL 0.9% 50ML MIN-BAG+ 50 ML IVPB ONE (12:51)
[2017-06-28] MEDS ORDERED: PIPERACILLIN/TAZOBACTAM 3.375 GM VIAL IVPB ONE (13:49)
[2017-06-28] MEDS ORDERED: SODIUM CHLORIDE 0.9% 100ML 100 ML IVPB ONE (13:49)
[2017-06-28 16:03] VITALS: TEMP 99.3
--- NOTE | 2017-06-28 16:35 | CT ---
EXAM DESCRIPTION: CTA Chest CLINICAL HISTORY: dyspnea, metastatic breast cancer COMPARISON: November 13, 2016 TECHNIQUE: Postcontrast CT images of the chest are obtained using pulmonary embolism imaging protocol. Three-D MIP reconstructed images of the arterial vasculature are obtained. Coronal and sagittal reconstructed images of the also provided. This exam was performed according to our departmental dose-optimization program, which includes automated exposure control, adjustment of the mA and/or kV according to patient size and/or use of iterative reconstruction technique . FINDINGS: The heart is enlarged. Ykow-de-jmgbgnpw coronary artery calcifications are seen with scattered calcified plaque of the thoracic aorta. No definite filling defects or emboli are seen in the pulmonary arteries. Exam is somewhat limited by lack of dense opacification of the pulmonary arterial vasculature.. Borderline mediastinal lymph nodes measuring up to 10 mm are seen which is decreased significantly in size compared to previous exam. The largest right precarinal lymph node now measures 1.9 cm compared to 3.4 cm on previous exam. There has been significant interval reduction in size of the enlarged left axillary lymph nodes seen on previous exam. The largest lymph node now measures 1.8 cm compared to 4.1 cm previously. Spiculated soft tissue attenuation mass in the right breast measures 4.8 cm compared to 7.2 cm previously. Left skin thickening over the right breast. The right breast is incompletely included in the [id number]-[id number]. Interval reduction in size of the large left pleural effusion seen on previous exam. Roems-ye-kifuprxk left pleural effusion remains with fluid in the oblique fissure. Lungs are poorly aerated. The nodular densities in the right upper lobe now measuring 8 and 9 mm compared to 12 and 10 mm on previous exam. Nodular densities are now seen in the left lung which is better aerated than previous exam. Small amount of mucus in the posterior mid to upper trachea is seen. Visualized upper abdomen shows enlarged nodular appearing liver. Gallstones are seen. 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 Lymph nodes in the epigastric and mark hepatis region are stable. Osseous structures show no aggressive bony lesions. Moderate spondylitic changes of the spine are seen. IMPRESSION: No CT evidence of pulmonary embolism. Interval improvement of large left pleural effusion seen on previous exam with some residual pleural effusion seen. Significant interval improvement of the mediastinal and axillary lymphadenopathy seen on previous exam suggesting response to therapy. The right breast mass decreased in size compared to previous exam with less overlying skin soft tissue thickening. The right upper lobe pulmonary nodules are smaller in size compared to previous. Interstitial nodular changes in the left lung could be related to atelectasis or infiltrate versus neoplastic process. Findings in the upper abdomen are stable from previous. Electronically signed by: Tien Louie MD 06/28/2017 4:34 PM CDT
--- NOTE | 2017-06-28 16:52 | ED.PDOC ---
History of Present Illness - General Chief Complaint: Respiratory Problem Stated Complaint: shortness of breath Time Seen by Provider: 06/28/17 12:24 Source: patient, family, EMS Exam Limitations: clinical condition - History of Present Illness Initial Comments: Patient presents from home with dyspnea. She had a thoracentesis 2 days ago as she has metastatic breast cancer. She was using a CPAP at home and it wasn't helping to stop her dyspnea. She normally uses NC during the day and CPAP at night. EMS reported that her oxygen saturations were in the 70s when they arrived but went into the 90s when they changed her to their CPAP. She is currently 92% with the CPAP at 5. 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 No other complaints. Timing/Duration: 1-3 hours Severity: moderate Improving Factors: nothing Worsening Factors: nothing Associated Symptoms: denies symptoms Allergies/Adverse Reactions: Allergies NO KNOWN ALLERGY Allergy (Verified 11/13/16 19:43) Home Medications: Ambulatory Orders Calcium Citrate-Vitamin D [Calcium Citrate/Vitamin D] 1 tab PO BID 11/13/16 Ferrous Sulfate 325 mg PO TID 11/13/16 Furosemide 40 mg PO DAILY 11/13/16 Gabapentin 600 mg PO TID 11/13/16 Glipizide 5 mg PO BID 11/13/16 Lisinopril 20 mg PO DAILY 11/13/16 Lovastatin 20 mg PO BEDTIME 11/13/16 Pantoprazole Tablet [Protonix] 40 mg PO DAILY 11/13/16 Potassium Chloride [Potassium Chloride ER] 10 meq PO DAILY 11/13/16 Acetaminophen [Tylenol] 1,000 mg PO Q8H PRN 06/28/17 Anastrozole [Arimidex] 1 mg PO DAILY 06/28/17 Bisacodyl [Dulcolax] 1 - 2 mg PO Q12H PRN 06/28/17 Cefdinir [Omnicef] 300 mg PO BID #14 cap 06/28/17 Cyanocobalamin [Vitamin B-12] 500 mcg SL DAILY 06/28/17 Exenatide [Bydureon] 2 mg SC WKLY 06/28/17 Tramadol HCl 50 mg PO Q8H PRN 06/28/17 Triamcinolone 0.1% Oint [Kenalog 0.1% Ointment] 1 applic TOP BID PRN 06/28/17 Review of Systems - Review of Systems Constitutional: States: no symptoms reported EENTM: States: no symptoms reported Respiratory: States: see HPI Cardiology: States: no symptoms reported Gastrointestinal/Abdominal: States: no symptoms reported Genitourinary: States: no symptoms reported Musculoskeletal: States: no symptoms reported Skin: States: no symptoms reported Neurological: States: no symptoms reported Endocrine: States: no symptoms reported Hematologic/Lymphatic: States: no symptoms reported Past Medical History (General) - Patient Medical History Hx Seizures: No Hx Stroke: No Hx Dementia: No Hx Asthma: Yes Hx of COPD: Yes Hx Cardiac Disorders: Yes Hx Congestive Heart Failure: Yes Hx Pacemaker: No Hx Hypertension: Yes Hx Thyroid Disease: No Hx Diabetes: Yes Hx Gastroesophageal Reflux: No Hx Renal Disease: No Hx MRSA: No Surgical History: other - Social History Hx Alcohol Use: No Hx Substance Use: No Hx Physical Abuse: No Hx Emotional Abuse: No Family Medical History - Family History Grandparents Hx Family Diabetes: Yes Physical Exam - Physical Exam General Appearance: Anxious Eye Exam: bilateral normal Ears, Nose, Throat: normal ENT inspection Neck: non-tender, full range of motion, supple Respiratory: other - decreased breath sounds in left lower lobe. No wheezing/ rales/rhonchi. 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, no motor/sensory deficits, alert, normal mood/affect, oriented x 3 Skin Exam: normal color Lymphatic: no adenopathy Progress - Progress Progress: 06/28/17 16:54 Laboratory Tests 06/28/17 06/28/17 06/28/17 12:25 12:47 12:47 WBC 6.7 RBC 3.62 L Hgb 11.2 L Hct 33.2 L MCV 91.8 MCH 30.9 MCHC 33.7 RDW 13.7 Plt Count 182 MPV 8.6 Absolute Neuts (auto) 5.00 Absolute Lymphs (auto) 0.80 L Absolute Monos (auto) 0.70 Absolute Eos (auto) 0.10 Absolute Basos (auto) 0.00 Neutrophils % 74.4 Lymphocytes % 12.3 L Monocytes % 10.6 H Eosinophils % 2.0 Basophils % 0.7 D-Dimer, Quantitative pCO2 50 H pO2 64 L HCO3 27.2 ABG pH 7.360 ABG O2 Saturation 94.2 L ABG Base Excess 1.7 ABG Deoxyhemoglobin 5.7 H Oxyhemoglobin % 91.8 L Carboxyhemoglobin % 0.5 Methemoglobin % Sat 2.0 H Calc Total Hemoglobin 10.6 L Sodium 138 Potassium 4.4 Chloride 99 L Carbon Dioxide 28 Anion Gap 15.4 BUN 35 H Creatinine 1.95 H BUN/Creatinine Ratio 17.9 Random Glucose 156 H Serum Osmolality 286.8 Lactic Acid Calcium 9.0 Total Bilirubin 0.8 AST 20 ALT 14 Alkaline Phosphatase 42 Serum Total Protein 7.0 Albumin 3.4 Globulin 3.6 H Albumin/Globulin Ratio 0.9 L Urine Color Urine Appearance Urine pH Ur Specific [place] Urine Protein Urine Glucose (UA) Urine Ketones Urine Blood Urine Nitrite Urine Bilirubin Urine Urobilinogen Ur Leukocyte Esterase Urine RBC Urine WBC Ur Epithelial Cells Urine Bacteria 06/28/17 06/28/17 06/28/17 12:47 12:47 15:24 WBC RBC Hgb Hct MCV MCH MCHC RDW Plt Count MPV Absolute Neuts (auto) Absolute Lymphs (auto) Absolute Monos (auto) Absolute Eos (auto) Absolute Basos (auto) Neutrophils % Lymphocytes % Monocytes % Eosinophils % Basophils % D-Dimer, Quantitative 864 H* pCO2 pO2 HCO3 ABG pH ABG O2 Saturation ABG Base Excess ABG Deoxyhemoglobin Oxyhemoglobin % Carboxyhemoglobin % Methemoglobin % Sat Calc Total Hemoglobin Sodium Potassium Chloride Carbon Dioxide Anion Gap BUN Creatinine BUN/Creatinine Ratio Random Glucose Serum Osmolality Lactic Acid 1.3 Calcium Total Bilirubin AST ALT Alkaline Phosphatase Serum Total Protein Albumin Globulin Albumin/Globulin Ratio Urine Color Yellow Urine Appearance Sl cloudy Urine pH 5.0 Ur Specific [place] 1.025 Urine Protein 100 H Urine Glucose (UA) 100 H Urine Ketones Negative Urine Blood Small H Urine Nitrite Negative Urine Bilirubin Small H Urine Urobilinogen 0.2 Ur Leukocyte Esterase Negative Urine RBC 3-5 H Urine WBC 0 Ur Epithelial Cells 3-5 Urine Bacteria 0 She recovered complete mental faculties in the E.D. Patient had temperature of 101.5. Her CT was negative for pneumonia or PE. She was given Zosyn and aztreonam in the E.D. pending cbc results but no source of infection is identified. This may be viral but will cover for community acquired bacterial pneumonia as well. E.D. warnings given. Questions were elicited and answered. The patient voiced understanding and agreement with the plan. 06/28/17 16:56 Departure - Departure Clinical Impression: Dyspnea Disposition: Discharge to Home or Self Care Condition: Fair Departure Forms: ED Discharge - Pt. Copy, Patient Portal Self Enrollment Diet: resume usual diet Activity: increase activity as tolerated Referrals: Yeni Rock NP [Primary Care Provider] - 1-2 Weeks Prescriptions: Cefdinir [Omnicef] 300 mg PO BID #14 cap Home Medications: Ambulatory Orders Calcium Citrate-Vitamin D [Calcium Citrate/Vitamin D] 1 tab PO BID 11/13/16 Ferrous Sulfate 325 mg PO TID 11/13/16 Furosemide 40 mg PO DAILY 11/13/16 Gabapentin 600 mg PO TID 11/13/16 Glipizide 5 mg PO BID 11/13/16 Lisinopril 20 mg PO DAILY 11/13/16 Lovastatin 20 mg PO BEDTIME 11/13/16 Pantoprazole Tablet [Protonix] 40 mg PO DAILY 11/13/16 Potassium Chloride [Potassium Chloride ER] 10 meq PO DAILY 11/13/16 Acetaminophen [Tylenol] 1,000 mg PO Q8H PRN 06/28/17 Anastrozole [Arimidex] 1 mg PO DAILY 06/28/17 Bisacodyl [Dulcolax] 1 - 2 mg PO Q12H PRN 06/28/17 Cefdinir [Omnicef] 300 mg PO BID #14 cap 06/28/17 Cyanocobalamin [Vitamin B-12] 500 mcg SL DAILY 06/28/17 Exenatide [Bydureon] 2 mg SC WKLY 06/28/17 Tramadol HCl 50 mg PO Q8H PRN 06/28/17 Triamcinolone 0.1% Oint [Kenalog 0.1% Ointment] 1 applic TOP BID PRN 06/28/17 Additional Instructions: See your regular doctor on Saturday. Return to the E.R. if shortness of breath happens again or if fever lasts longer than 3 days.
[2017-06-28 18:16] VITALS: BP 133/66; O2SAT 93
== END 2017-06-28 18:17 | disposition home or self-care (01) ==
LOC: ER 12:23
DX: R06.00 Dyspnea, unspecified (principal); J44.9 Chronic obstructive pulmonary disease, unspecified; I11.0 Hypertensive heart disease with heart failure; I50.9 Heart failure, unspecified; E11.9 Type 2 diabetes mellitus without complications; C50.919 Malignant neoplasm of unspecified site of unspecified female breast; C79.9 Secondary malignant neoplasm of unspecified site; Z79.84 Long term (current) use of oral hypoglycemic drugs; Z79.899 Other long term (current) drug therapy; R41.0 Disorientation, unspecified; Z99.81 Dependence on supplemental oxygen
CPT/HCPCS: 36415; 36600; 71045; 71275; 80053; 81001; 82803; 82805; 83605; 85025; 85379; 87040; 94660; J2543; J7050

== ENCOUNTER → 2017-10-21 | Outpatient (CLI) | payer MEDICARE, MEDICAID ==
--- NOTE | 2017-10-21 16:28 | RAD ---
EXAM DESCRIPTION: Chest,2 Views CLINICAL HISTORY: PLEURAL EFFUSION COMPARISON: Previous study June 28, 2017 TECHNIQUE: PA/lateral FINDINGS: Cardiac silhouette is enlarged which could be cardiomegaly or pericardial effusion. Large left pleural effusion is present. There is vascular congestion. No mass in the lungs. Compared to previous study, left pleural effusion is increased and the compressed state of the left lung has worsened. Lateral view shows large effusion. Calcified aorta is seen. IMPRESSION: Large heart with vascular congestion. Large left pleural effusion with partial volume loss of the left lung. Electronically signed by: Tigre Corrigan MD 10/21/2017 4:26 PM CDT
== END ==
LOC: RAD 13:35
PROVIDERS: ATTEND Nurse Practitioner Family
DX: J90 Pleural effusion, not elsewhere classified (principal)

== ENCOUNTER 2017-11-05 05:31 | Day surgery (SDC) | payer MEDICARE, MEDICAID ==
--- NOTE | 2017-11-05 10:36 | US ---
Superficial sonogram of the chest Indication: thoracentesis in asu room 3 Comparison: None. Impression: Limited sonogram of the left chest performed for evaluation of the left pleural effusion and for image guidance for the referring physician to perform thoracentesis. Correlation with surgical report recommended for additional details. Electronically signed by: Binh Lazo MD 11/05/2017 10:35 AM CDT
--- NOTE | 2017-11-05 10:39 | OP ---
DATE OF PROCEDURE: 11/05/17 PREOPERATIVE DIAGNOSIS: 1. Left malignant pleural effusion. POSTOPERATIVE DIAGNOSIS: 1. Left malignant pleural effusion. PROCEDURE: 1. Sonographically guided thoracentesis, left chest. SURGEON: Joe Monsivais MD. LOAD MANAGER: None. ANESTHESIA: Local infiltration of 1% lidocaine. INDICATION: The patient is a 77-year-old female with malignant pleural effusion. She has previously had three thoracenteses and she has developed increasing shortness of breath on home oxygen and I have been asked to perform a thoracentesis for symptomatic relief. PROCEDURE: The patient was brought to the Outpatient Department and set on her bed with her arms extended over a bedside table. The left back was inspected using ultrasound and a deep pocket was identified. This area was then prepped with ChloraPrep and the local infiltration of anesthesia was obtained. A 25 gauge needle was introduced until the fluid was obtained. At this point, a stab wound was made with an 11 blade. The thoracentesis needle was then introduced down and walked up over the rib, introduced until fluid was obtained. The catheter was advanced. The needle was removed. There was 100 mL of fluid which was bloody obtained using the syringe and two-way stopcock. It was then connected to suction bottles and another 1100 mL of fluid was removed. The patient did have some discomfort at the end of the case. The fluid was bloody. It was not sent for anything due to the patient's known state. The catheter was removed. Band-Aid was applied. A stat portable chest x-ray was ordered. The patient tolerated the procedure well. There was essentially no blood loss. #[id number] [facility]
--- NOTE | 2017-11-05 11:07 | RAD ---
EXAM DESCRIPTION: Chest,1 View CLINICAL HISTORY: 77 years Female, post thoracentesis COMPARISON: Previous study October 22, 2007 TECHNIQUE: AP portable chest. FINDINGS: Heart size is large with increased pulmonary vascularity. Infiltrate is seen in the left midlung and left lower lobe. This is improved compared to the previous study. Correlate with CT findings. Tiny lucency in the medial upper lobe region suggests a tiny pneumothorax which may extend over the apex. Apical extent is indeterminate however. No pulmonary mass or worrisome nodule. Bones are unremarkable. IMPRESSION: Tiny left medial pneumothorax after left thoracentesis. Infiltrate in the left mid and lower lung zones. Large heart with moderate vascular congestion. Electronically signed by: Tigre Corrigan MD 11/05/2017 11:05 AM CDT
[2017-11-05 11:10] VITALS: BP 133/84; TEMP 97.2; O2SAT 99
== END 2017-11-05 10:47 | disposition home or self-care (01) ==
LOC: AMB 05:31
PROVIDERS: ATTEND Surgery
DX: J91.0 Malignant pleural effusion (principal); J44.9 Chronic obstructive pulmonary disease, unspecified; E11.9 Type 2 diabetes mellitus without complications; D64.9 Anemia, unspecified; I10 Essential (primary) hypertension; I25.10 Atherosclerotic heart disease of native coronary artery without angina pectoris; Z99.81 Dependence on supplemental oxygen

== ENCOUNTER → 2018-12-24 | Outpatient (CLI) | payer MEDICARE, MEDICAID ==
--- NOTE | 2018-12-24 09:33 | RAD ---
EXAM DESCRIPTION: Chest,2 Views CLINICAL HISTORY: PLEURAL EFFUSION COMPARISON: Previous study January 03, 2018 TECHNIQUE: PA/lateral FINDINGS: Discoid atelectasis or linear scarring in the left perihilar region extending to the pleura with mild pleural thickening. Infiltrate in this area has resolved. Density in the left paracardiac region more inferiorly on the previous study appears to have resolved. New density is seen in the medial left lung base consistent with patchy atelectasis or infiltrate. Dense gayla bilaterally thought to be vascular. Linear densities above and below the right hilum consistent with discoid atelectasis similar to previous study. Heart size is large with mildly increased pulmonary vascularity. No pleural effusion or pneumothorax. Lateral view shows intact sternum and T-spine. IMPRESSION: Large heart with prominent vascularity. Patchy infiltrate or partial volume loss in the left lung base. Electronically signed by: Tigre Corrigan MD 12/24/2018 9:32 AM CDT
--- NOTE | 2018-12-25 07:52 | US ---
EXAM DESCRIPTION: Liver: ULTRASOUND. CLINICAL HISTORY: RUQ PAIN COMPARISON: Chest x-ray on the same visit. TECHNIQUE: Transabdominal scannin-dimensional and Doppler modes. FINDINGS: Gallbladder: Mildly distended with multiple echogenic stones, mobile with patient change in position. Largest stone 2.4 cm. Ascites. No wall thickening. 2.4 mm. Non-tender with transducer pressure. Common bile duct: caliber 5.5 mm within normal limits. Liver: Increased echogenicity; contour liver capsule smooth where seen. No fluid around the liver. Intrahepatic biliary ducts normal caliber. Doppler hepatopedal flow portal vein. 1.1 cm. Long axis right lobe 14.8 cm. Pancreas: normal size and echogenicity. Duct not seen. Right kidney: long axis measures 9.0 cm. Increased cortical echogenicity. Cortical thinning 11 mm. No hydronephrosis. Lobulated renal capsule. Aorta proximal: Obscured by intestinal gas shadowing. Complex cystic and solid mass in the right lower quadrant with minimal vascularity. Estimated size 15.1 x 13.7 cm. IMPRESSION: Diffuse ascites in all 4 quadrants. Complex mass right lower quadrant measuring 15 cm, may be genitourinary origin. Mildly distended gallbladder with multiple gallstones, largest 2.4 cm. Fatty liver with normal vascularity and ducts. Smooth capsule with no ascites. Small liver with thin cortex, possible medical renal disease, with lobulated capsule. Electronically signed by: Aren Leon MD 12/25/2018 7:50 AM CDT
== END ==
LOC: US 09:43
PROVIDERS: ATTEND Surgery
DX: J90 Pleural effusion, not elsewhere classified (principal); R91.8 Other nonspecific abnormal finding of lung field; K76.0 Fatty (change of) liver, not elsewhere classified; R19.01 Right upper quadrant abdominal swelling, mass and lump; K80.20 Calculus of gallbladder without cholecystitis without obstruction